=== PATIENT | male | born 2005 | race Caucasian/White ===

== ENCOUNTER 2023-09-24 16:53 | Observation (INO) ==
[2023-09-24] MEDS: dexAMETHasone**PF** 10 MG/ML VIAL IV ONE (17:10)
[2023-09-24] MEDS: diphenhydrAMINE 50 MG/ML VIAL IV STA ×2 (17:10→21:11)
[2023-09-24] MEDS: SODIUM CHLORIDE 0.9% 1,000 ML IV ONE ×2 (17:10→17:12)
[2023-09-24] MEDS: FAMOTIDINE 20MG IV PUSH 20 MG/5 ML SYR IV STA (17:10)
[2023-09-24] MEDS: EPINEPHrine INJ 1 MG/ML AMP ONE (17:11)
--- NOTE | 2023-09-24 21:31 | History & Physical Report ---
Date of Service September 24, 2023 Assessment & Plan (1) Allergic reaction: Plan: 18yo male presenting from home after eating a power bar containing tree nuts. Patient with swelling of tongue and lips, blurry vision. He self-administered his epi-pen prior to arrival. Upon arrival reported to be hypotensive which corrected with IVF. He was administered additional epinephrine x 1 a well as Dexamethasone, Benadryl and Pepcid. He had initial improvement in symptoms but unfortunately the rash returned. No airway involvement at present. 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 Patient ate a protein bar earlier today that contained tree nuts. Patient developed swelling of his tongue and lips as well as trouble swallowing, blurry vision and a diffuse rash. He self- administered his epi-pen and came to the ER. Per report, patient initially hypotensive. No stridor or respiratory distress. He was administered steroids, Benadryl, Pepcid and a second dose of epinephrine (given at 17:11). Patient's symptoms initially resolved, however they returned appx 4 hours later. Now with diffuse, pruritic erythematous rash. No further tongue swelling. No SOB. No additional complaints at this time. ER Course: NSS x 2L Benadryl 50mg IV + 25mg IV Pepcid 20mg IV Dexamethasone 10mg IV Epinephrine 0.3mg IM Allergies Allergy/AdvReac Type Severity Reaction Status Date / Time tree nut Allergy Severe Anaphylaxis--CARRIES Verified 09/24/23 17:49 AN EPIPEN Home Medications Medication Instructions Recorded Confirmed Type ashwagandha extract 120 mg capsule 0 mg PO DAILY 09/24/23 09/24/23 History cholecalciferol (vitamin D3) 50 50 mcg PO DAILY 09/24/23 09/24/23 History mcg (2,000 unit) capsule (Vitamin D3) cyanocobalamin (vitamin B-12) 1,000 mcg PO DAILY 09/24/23 09/24/23 History 1,000 mcg tablet (Vitamin B-12) dexmethylphenidate 10 mg tablet 10 mg PO DAILY 09/24/23 09/24/23 History (Focalin) epinephrine 0.3 mg/0.3 mL 0.3 mg IM DIRECTED PRN Allergic 09/24/23 09/24/23 History injection, auto-injector (EpiPen) Reaction omega 4-esm-zqs-fish oil 1,000 mg 1 cap PO DAILY 09/24/23 09/24/23 History (120 mg-180 mg) capsule (Fish Oil) Past Med/Surg History Medical History (Updated 09/24/23 @ 22:37 by Maggie Arnold DO) No significant past medical history Surgical History (Updated 09/24/23 @ 22:33 by Maggie Arnold DO) No significant past surgical history Family History (Updated 09/24/23 @ 22:34 by Maggie Arnold DO) Other No significant family history Social History (Updated 09/24/23 @ 22:34 by Maggie Arnold DO) Smoking Status: Never smoker Hx Alcohol Use: No Hx Substance Use: No Preferred Language: Panamanian 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 Beliefs That Will Affect Care: None Current Living Situation Comment: House with roommates Feels Safe at Home: Yes Review of Systems Review of Systems: All systems reviewed & are unremarkable except as noted in HPI & below Physical Exam Physical Exam: General: patient resting comfortably, NAD, non-toxic in appearance, AA&O x 4 Skin: diffuse erythematous, blanching rash present on arms, legs, abdomen HEENT: NC/AT, PERRL, EOMI, anicteric sclera, conjunctiva without injection, external ear normal to inspection and nontender, nares patent, moist mucus membranes, dentition intact, no oropharyngeal lesions, neck supple, trachea midline, no LAD, no thyromegaly, no JVD, no edema of the tongue, soft palate or uvula Heart: +S1/S2, regular, no m/r/g Lungs: equal air entry bilaterally, no rales/rhonchi/wheezes Abd: +BS, soft, NT/ND, no masses/organomegaly/ascites Ext: warm, 2+ pulses in UE/LE bilaterally, no clubbing/cyanosis or edema Neuro: nonfocal, patient AA&O x 4, speech intact, no facial droop, moving all extremities on command with equal strength 5/5 Results & Data Results & Data Vital Signs (Past 12 Hours) Vital Signs Temp Pulse Pulse Resp BP BP Pulse Ox 09/24/23 21:11 75 09/24/23 21:01 90 18 122/98 99 09/24/23 18:45 93 H 15 98 09/24/23 18:45 119/70 09/24/23 18:40 78 18 98 09/24/23 18:30 73 20 99 09/24/23 18:30 122/71 09/24/23 18:20 75 18 98 09/24/23 18:15 126/68 09/24/23 18:15 76 26 H 98 09/24/23 18:10 80 12 98 09/24/23 18:01 112/71 09/24/23 18:01 83 14 98 09/24/23 18:00 87 21 92 09/24/23 17:50 80 16 98 09/24/23 17:45 80 17 96 09/24/23 17:45 114/77 09/24/23 17:40 85 20 97 09/24/23 17:30 86 17 96 09/24/23 17:30 109/73 09/24/23 17:25 91 H 17 96 09/24/23 17:25 122/70 09/24/23 17:20 119/79 09/24/23 17:20 88 17 96 09/24/23 17:15 93 H 15 96 09/24/23 17:15 118/79 09/24/23 17:12 91 09/24/23 17:10 83 17 95 09/24/23 17:10 110/79 09/24/23 17:09 127 H 09/24/23 17:07 126 H 13 99 09/24/23 16:55 36.6 C 74 20 100 O2 Del Method 09/24/23 21:11 09/24/23 21:01 Room Air 09/24/23 18:45 Room Air 09/24/23 18:45 09/24/23 18:40 09/24/23 18:30 09/24/23 18:30 09/24/23 18:20 09/24/23 18:15 09/24/23 18:15 09/24/23 18:10 03/16/24 18:01 09/24/23 18:01 09/24/23 18:00 09/24/23 17:50 09/24/23 17:45 09/24/23 17:45 09/24/23 17:40 09/24/23 17:30 09/24/23 17:30 09/24/23 17:25 Room Air 09/24/23 17:25 09/24/23 17:20 09/24/23 17:20 Room Air 09/24/23 17:15 09/24/23 17:15 09/24/23 17:12 Room Air 09/24/23 17:10 09/24/23 17:10 09/24/23 17:09 09/24/23 17:07 09/24/23 16:55 Room Air PG Care Time/CCT Total # of Minutes Spent Total Time Spent with Patient: Total time spent is greater than 50% in coordination of care (as documented) at patient's floor/unit and/or counseling patient: Coding Level of Care Code 10765 INT INP/OBS CARE 2/55MIN Diagnoses Allergic reaction T78.40XA
[2023-09-24] MEDS ORDERED: ONDANSETRON INJ 2 MG/ML 2 ML VIAL IV PRN (22:58)
[2023-09-24] MEDS ORDERED: ACETAMINOPHEN 325 MG TAB PO PRN (22:58)
[2023-09-24 23:29] LABS: Hematocrit (blood only) 51.1 % (42.0-52.0); Hemoglobin 17.8 g/dl (14.0-18.0); Mean Corpuscular Hemoglobin 29.6 pg (25.0-34.0); Mean Corpuscular Hgb Conc 34.8 g/dL (32.0-36.0); Mean Corpuscular Volume 84.9 fL (80.0-100.0); Mean Platelet Volume 10.9 fL (9.4-12.4); Platelet Count 318 K/uL (130-400); RDW Coefficient of Variation 11.9 % (11.5-14.5); Red Blood Count 6.02 M/uL (4.70-6.10); White Blood Count 10.75 K/ul (4.8-10.8)
[2023-09-24 23:32] LABS: Alanine Aminotransferase 17 U/L (7-52); Albumin Level 4.5 gm/dl (3.4-5.0); Alkaline Phosphatase 98 U/L (34-104); Anion Gap 12 (3-11); Aspartate Aminotransferase 27 U/L (13-39); BUN Creatinine Ratio 16.4 (10-20); Bilirubin,Total 1.3 mg/dl (0.2-1.0); Blood Urea Nitrogen 18 mg/dl (6-23); Calcium 9.5 mg/dl (8.6-10.3); Carbon Dioxide 23 mmol/L (21-32); Chloride 107 mmol/L (98-107); Est GFR (African American) 111.4 ml/min; Est GFR (Non-African American) 96.1 ml/min; Glucose 114 mg/dl (70-99(Fasting)); Magnesium 1.9 mg/dl (1.7-2.4); Potassium 3.4 mmol/L (3.5-5.1); Sodium 142 mmol/L (136-145)
[2023-09-25 00:03] LABS: ALC (manual) 5.59 K/uL (1.2-3.4); ANC (manual) 4.09 K/uL (1.4-6.5); Acanthocytes 1+; Eosinophils # (manual) 0.11 K/uL (0-0.50); Eosinophils % (manual) 1 %; Lymphocytes # (manual) 3.23 K/uL (1.2-3.4); Lymphocytes % (manual) 30 %; Monocytes # (manual) 0.97 K/uL (0.11-0.59); Monocytes % (manual) 9 %; Neutrophils # (manual) 4.09 K/uL (1.40-6.50); Neutrophils % (manual) 38 %; Reactive Lymphocytes # (manual) 2.36 K/uL; Reactive Lymphocytes % (manual) 22 %
--- NOTE | 2023-09-25 01:42 | Emergency Department Note ---
ED Provider Note History of Present Illness Chief Complaint: Allergic Reaction Stated Complaint: ALLERGIC REACTION - TREE NUTS Time Seen by Provider: 09/24/23 16:58 Source: patient Mode of arrival: ambulatory Limitations: no limitations This patient is a 18-year-old male who presents to the emergency department for evaluation of an allergic reaction. Patient ate a protein bar immediately developed hives, swelling of tongue and lips, blurred vision. He has a history of a tree nut allergy. He used to prior to arrival, however symptoms persisted on arrival here. States that his throat feels itchy but denies any trouble breathing or swallowing. Denies any abdominal cramping, vomiting or diarrhea. Home Medications Medication Instructions Recorded Confirmed Type ashwagandha extract 120 mg capsule 0 mg PO DAILY 09/24/23 09/24/23 History cholecalciferol (vitamin D3) 50 50 mcg PO DAILY 09/24/23 09/24/23 History mcg (2,000 unit) capsule (Vitamin D3) cyanocobalamin (vitamin B-12) 1,000 mcg PO DAILY 09/24/23 09/24/23 History 1,000 mcg tablet (Vitamin B-12) dexmethylphenidate 10 mg tablet 10 mg PO DAILY 09/24/23 09/24/23 History (Focalin) epinephrine 0.3 mg/0.3 mL 0.3 mg IM DIRECTED PRN Allergic 09/24/23 09/24/23 History injection, auto-injector (EpiPen) Reaction omega 5-lna-ary-fish oil 1,000 mg 1 cap PO DAILY 09/24/23 09/24/23 History (120 mg-180 mg) capsule (Fish Oil) Allergies Allergy/AdvReac Type Severity Reaction Status Date / Time tree nut Allergy Severe Anaphylaxis--CARRIES Verified 09/24/23 17:49 AN EPIPEN Past Med/Surg History Medical History No significant past medical history Surgical History No significant past surgical history Family History Other No significant family history Social History Smoking Status: Never smoker Hx Alcohol Use: No Hx Substance Use: No Preferred Language: Kazakh 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 Beliefs That Will Affect Care: None Current Living Situation Comment: House with roommates Feels Safe at Home: Yes Safety Concerns: Feels Safe At This Time Physical Exam Vital Signs Vital Signs - 24 hr 09/24/23 16:55 09/24/23 16:59 09/24/23 17:00 Temperature 36.6 C Temperature Source Temporal Artery Scan Pulse Rate 74 Pulse Rate [Apical] Pulse Rate from SpO2 Sensor Pulse Rhythm [Apical] Respiratory Rate 20 Respiratory Effort / Characteristics Non-Labored Respiratory Depth Normal Blood Pressure Blood Pressure [Right Arm] 82/57 L 76/59 L Blood Pressure Mean Blood Pressure Mean [Right Arm] 65 64 Pulse Oximetry 100 Oxygen Delivery Method Room Air Sepsis Recent Fever Within 48 Hours No Sepsis New/Unexplained Change in Mental Status No Sepsis Action Taken by Nursing No Action Required 09/24/23 17:01 09/24/23 17:05 09/24/23 17:07 Temperature Temperature Source Pulse Rate 126 H Pulse Rate [Apical] 123 H Pulse Rate from SpO2 Sensor Pulse Rhythm [Apical] Regular Respiratory Rate 13 Respiratory Effort / Characteristics Respiratory Depth Blood Pressure Blood Pressure [Right Arm] 69/51 L 86/47 L Blood Pressure Mean Blood Pressure Mean [Right Arm] 57 60 Pulse Oximetry 97 99 Oxygen Delivery Method Room Air Sepsis Recent Fever Within 48 Hours Sepsis New/Unexplained Change in Mental Status Sepsis Action Taken by Nursing 09/24/23 17:09 09/24/23 17:10 09/24/23 17:10 Temperature Temperature Source Pulse Rate 127 H 83 Pulse Rate [Apical] Pulse Rate from SpO2 Sensor Pulse Rhythm [Apical] Respiratory Rate 17 Respiratory Effort / Characteristics Respiratory Depth Blood Pressure 110/79 Blood Pressure [Right Arm] Blood Pressure Mean 84 Blood Pressure Mean [Right Arm] Pulse Oximetry 95 Oxygen Delivery Method Sepsis Recent Fever Within 48 Hours Sepsis New/Unexplained Change in Mental Status Sepsis Action Taken by Nursing 09/24/23 17:12 09/24/23 17:15 09/24/23 17:15 Temperature Temperature Source Pulse Rate 93 H Pulse Rate [Apical] Pulse Rate from SpO2 Sensor Pulse Rhythm [Apical] Respiratory Rate 15 Respiratory Effort / Characteristics Respiratory Depth Blood Pressure 118/79 Blood Pressure [Right Arm] Blood Pressure Mean 98 Blood Pressure Mean [Right Arm] Pulse Oximetry 91 96 Oxygen Delivery Method Room Air Sepsis Recent Fever Within 48 Hours Sepsis New/Unexplained Change in Mental Status Sepsis Action Taken by Nursing 09/24/23 17:20 09/24/23 17:20 09/24/23 17:25 Temperature Temperature Source Pulse Rate 88 Pulse Rate [Apical] Pulse Rate from SpO2 Sensor 86 Pulse Rhythm [Apical] Respiratory Rate 17 Respiratory Effort / Characteristics Respiratory Depth Blood Pressure 119/79 122/70 Blood Pressure [Right Arm] Blood Pressure Mean 93 85 Blood Pressure Mean [Right Arm] Pulse Oximetry 96 Oxygen Delivery Method Room Air Sepsis Recent Fever Within 48 Hours Sepsis New/Unexplained Change in Mental Status Sepsis Action Taken by Nursing 09/24/23 17:25 09/24/23 17:30 09/24/23 17:30 Temperature Temperature Source Pulse Rate 91 H 86 Pulse Rate [Apical] Pulse Rate from SpO2 Sensor 89 80 Pulse Rhythm [Apical] Respiratory Rate 17 17 Respiratory Effort / Characteristics Respiratory Depth Blood Pressure 109/73 Blood Pressure [Right Arm] Blood Pressure Mean 94 Blood Pressure Mean [Right Arm] Pulse Oximetry 96 96 Oxygen Delivery Method Room Air Sepsis Recent Fever Within 48 Hours Sepsis New/Unexplained Change in Mental Status Sepsis Action Taken by Nursing 09/24/23 17:40 09/24/23 17:45 09/24/23 17:45 Temperature Temperature Source Pulse Rate 85 80 Pulse Rate [Apical] Pulse Rate from SpO2 Sensor 83 83 Pulse Rhythm [Apical] Respiratory Rate 20 17 Respiratory Effort / Characteristics Respiratory Depth Blood Pressure 114/77 Blood Pressure [Right Arm] Blood Pressure Mean 94 Blood Pressure Mean [Right Arm] Pulse Oximetry 97 96 Oxygen Delivery Method Sepsis Recent Fever Within 48 Hours Sepsis New/Unexplained Change in Mental Status Sepsis Action Taken by Nursing 09/24/23 17:50 09/24/23 18:00 09/24/23 18:01 Temperature Temperature Source Pulse Rate 80 87 83 Pulse Rate [Apical] Pulse Rate from SpO2 Sensor 81 90 81 Pulse Rhythm [Apical] Respiratory Rate 16 21 14 Respiratory Effort / Characteristics Respiratory Depth Blood Pressure Blood Pressure [Right Arm] Blood Pressure Mean Blood Pressure Mean [Right Arm] Pulse Oximetry 98 92 98 Oxygen Delivery Method Sepsis Recent Fever Within 48 Hours Sepsis New/Unexplained Change in Mental Status Sepsis Action Taken by Nursing 09/24/23 18:01 09/24/23 18:10 09/24/23 18:15 Temperature Temperature Source Pulse Rate 80 76 Pulse Rate [Apical] Pulse Rate from SpO2 Sensor 81 78 Pulse Rhythm [Apical] Respiratory Rate 12 26 H Respiratory Effort / Characteristics Respiratory Depth Blood Pressure 112/71 Blood Pressure [Right Arm] Blood Pressure Mean 78 Blood Pressure Mean [Right Arm] Pulse Oximetry 98 98 Oxygen Delivery Method Sepsis Recent Fever Within 48 Hours Sepsis New/Unexplained Change in Mental Status Sepsis Action Taken by Nursing 09/24/23 18:15 09/24/23 18:20 09/24/23 18:30 Temperature Temperature Source Pulse Rate 75 Pulse Rate [Apical] Pulse Rate from SpO2 Sensor 76 Pulse Rhythm [Apical] Respiratory Rate 18 Respiratory Effort / Characteristics Respiratory Depth Blood Pressure 126/68 122/71 Blood Pressure [Right Arm] Blood Pressure Mean 82 95 Blood Pressure Mean [Right Arm] Pulse Oximetry 98 Oxygen Delivery Method Sepsis Recent Fever Within 48 Hours Sepsis New/Unexplained Change in Mental Status Sepsis Action Taken by Nursing 09/24/23 18:30 09/24/23 18:40 09/24/23 18:45 Temperature Temperature Source Pulse Rate 73 78 Pulse Rate [Apical] Pulse Rate from SpO2 Sensor 75 77 Pulse Rhythm [Apical] Respiratory Rate 20 18 Respiratory Effort / Characteristics Respiratory Depth Blood Pressure 119/70 Blood Pressure [Right Arm] Blood Pressure Mean 89 Blood Pressure Mean [Right Arm] Pulse Oximetry 99 98 Oxygen Delivery Method Sepsis Recent Fever Within 48 Hours Sepsis New/Unexplained Change in Mental Status Sepsis Action Taken by Nursing 09/24/23 18:45 09/24/23 21:01 09/24/23 21:11 Temperature Temperature Source Pulse Rate 93 H 75 Pulse Rate [Apical] 90 Pulse Rate from SpO2 Sensor 87 Pulse Rhythm [Apical] Regular Respiratory Rate 15 18 Respiratory Effort / Characteristics Non-Labored Respiratory Depth Normal Blood Pressure Blood Pressure [Right Arm] 122/98 Blood Pressure Mean Blood Pressure Mean [Right Arm] 106 Pulse Oximetry 98 99 Oxygen Delivery Method Room Air Room Air Sepsis Recent Fever Within 48 Hours Sepsis New/Unexplained Change in Mental Status Sepsis Action Taken by Nursing VITALS: Vitals are noted on the nurse's note and reviewed by myself. GENERAL: This is a 18-year-old male, moderate distress. SKIN: Diffuse urticaria noted. EARS: External auditory canals clear, tympanic membranes pearly mejia without erythema or effusion bilaterally. EYES: Pupils equal round and reactive to light and accommodation. NOSE: Patent, turbinates without inflammation or discharge. MOUTH: Mucous membranes moist. Tonsils are not enlarged. Pharynx without erythema or exudate. NECK: Supple without nuchal rigidity. No lymphadenopathy. HEART: tachycardic, regular rhythm without murmurs gallops or rubs. LUNGS: Clear to auscultation bilaterally without wheezes, rales or rhonchi. ABDOMEN: Positive bowel sounds x 4. Soft, nontender to palpation NEURO: Patient was alert and oriented to person place and time. Course Administered Medications Discontinued Medications Dexamethasone Sodium Phosphate (DexamethasonePf 10 Mg/Ml Vial) 10 mg IV NOW ONE Stop: 09/24/23 17:04 Last Admin: 09/24/23 17:10 Dose: 10 mg Documented By: ML Diphenhydramine HCl (Diphenhydramine 50 Mg/Ml Vial) 50 mg IV NOW STA Stop: 09/24/23 17:04 Last Admin: 09/24/23 17:10 Dose: 50 mg Documented By: RABIA Diphenhydramine HCl (Diphenhydramine 50 Mg/Ml Vial) 25 mg IV NOW STA Stop: 09/24/23 21:08 Last Admin: 09/24/23 21:11 Dose: 25 mg Documented By: RABIA Epinephrine HCl (Epinephrine Inj 1 Mg/Ml Amp) Confirm Administered Dose 1 mg .ROUTE .STK-MED ONE Stop: 09/24/23 17:02 Last Admin: 09/24/23 17:11 Dose: 0.3 mg Documented By: ML Sodium Chloride (Nss) 1,000 mls @ 999 mls/hr IV .Q1H1M ONE Stop: 09/24/23 18:03 Last Infusion: 09/24/23 18:11 Dose: Infused Documented By: Admin: 09/24/23 17:10 Dose: 999 mls/hr Documented By: ML Famotidine (Pepcid 20mg Iv Push) 20 mg in 5 mls @ 2.5 mls/min IV NOW STA Stop: 09/24/23 17:04 Last Admin: 09/24/23 17:10 Dose: 2.5 mls/min Documented By: ML Sodium Chloride (Nss) 1,000 mls @ 999 mls/hr IV .Q1H1M ONE Stop: 09/24/23 18:11 Last Infusion: 09/24/23 18:11 Dose: Infused Documented By: Admin: 09/24/23 17:12 Dose: 999 mls/hr Documented By: RABIA Medical Decision Making Differential Diagnosis Allergic reaction, anaphylaxis, urticaria, Cole-Sylvester syndrome, toxic epidermal necrolysis, erythema multiforme, contact dermatitis, cellulitis, as well as other pathologies. Laboratory Data 09/24/23 17:00 09/24/23 17:00 Lab Results 09/24/23 Range/Units 17:00 WBC 10.75 (4.8-10.8) K/ul RBC 6.02 (4.70-6.10) M/uL Hgb 17.8 (14.0-18.0) g/dl Hct 51.1 (42.0-52.0) % MCV 84.9 (80.0-100.0) fL MCH 29.6 (25.0-34.0) pg MCHC 34.8 (32.0-36.0) g/dL RDW Std Deviation 36.0 L (36.4-46.3) fL RDW Coeff of Sami 11.9 (11.5-14.5) % Plt Count 318 (130-400) K/uL MPV 10.9 (9.4-12.4) fL Neutrophils % (Manual) 38 % Lymphocytes % (Manual) 30 % Reactive Lymphs % (Man) 22 % Monocytes % (Manual) 9 % Eosinophils % (Manual) 1 % Neutrophils # (Manual) 4.09 (1.40-6.50) K/uL Total Absolute Neuts 4.09 (1.4-6.5) K/uL Lymphocytes # (Manual) 3.23 (1.2-3.4) K/uL Reactive Lymphs # 2.36 K/uL Total Abs Lymphocytes 5.59 H (1.2-3.4) K/uL Monocytes # (Manual) 0.97 H (0.11-0.59) K/uL Eosinophils # (Manual) 0.11 (0-0.50) K/uL Acanthocytes (Spur) 1+ Sodium 142 (136-145) mmol/L Potassium 3.4 L (3.5-5.1) mmol/L Chloride 107 (98-107) mmol/L Carbon Dioxide 23 (21-32) mmol/L Anion Gap 12 H (3-11) BUN 18 (6-23) mg/dl Creatinine 1.10 (0.6-1.4) mg/dl Est Cr Clr Drug Dosing Not Reportable Est GFR ( Amer) 111.4 ml/min Est GFR (Non-Af Amer) 96.1 ml/min BUN/Creatinine Ratio 16.4 (10-20) Glucose 114 H (70-99(Fasting)) mg/dl Calcium 9.5 (8.6-10.3) mg/dl Magnesium 1.9 (1.7-2.4) mg/dl Total Bilirubin 1.3 H (0.2-1.0) mg/dl Direct Bilirubin 0.0 (0-0.2) mg/dl AST 27 (13-39) U/L ALT 17 (7-52) U/L Alkaline Phosphatase 98 (34-104) U/L Total Protein 7.0 (6.0-8.3) gm/dl Albumin 4.5 (3.4-5.0) gm/dl MDM Narrative This patient is a 18-year-old male who presents to the emergency department for evaluation of an anaphylactic reaction. Patient initially hypotensive although maintaining airway on arrival. He was immediately treated with a second dose of IM epinephrine and additionally given 2 L of normal saline, 50 mg of Benadryl, 10 mg of dexamethasone and 20 mg of Pepcid IV. Patient had significant improvement after this treatment. He was monitored for 4 hours to assess for rebound reaction and unfortunately on examination patient had recurrent urticaria. He was given an additional 25 mg of Benadryl IV and admitted to the hospitalist service for further care. Impression Anaphylaxis Critical Care Time I have personally spent greater than 35 minutes of critical care time in the direct management of this patient. This includes bedside care, interpretation of diagnostic studies, and testing, discussion with consultants, patient, and family members, and other required patient management activities. This 35 minutes is in excess of all separately billable procedures. Discharge Plan Visit Data Chief Complaint: Allergic Reaction Stated Complaint: ALLERGIC REACTION - TREE NUTS ED Provider: Toshia Viera ED Midlevel Provider: Faina Christie Discharge Problem: Anaphylaxis Discharge Instructions Interventions: ED Discharge Assessment Last Done: 09/24/23 22:58 Discharge Problem: Anaphylaxis Qualifiers: Encounter type: initial encounter Qualified Code(s): T78.2XXA - Anaphylactic shock, unspecified, initial encounter
[2023-09-25] MEDS: methylPREDNISolone 40 MG in SYRINGE 0 ML IV SCH (09:48)
[2023-09-25] MEDS: POTASSIUM CHLORIDE CRTAB 20 MEQ TABCR PO STA (09:48)
[2023-09-25] MEDS: FAMOTIDINE 20MG IV PUSH 20 MG/5 ML SYR IV SCH (09:57)
[2023-09-25] MEDS: diphenhydrAMINE 50 MG/ML VIAL IV SCH (09:57)
--- NOTE | 2023-09-25 11:31 | Discharge Summary ---
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 Patient ate a protein bar earlier today that contained tree nuts. Patient developed swelling of his tongue and lips as well as trouble swallowing, blurry vision and a diffuse rash. He self- administered his epi-pen and came to the ER. Per report, patient initially hypotensive. No stridor or respiratory distress. He was administered steroids, Benadryl, Pepcid and a second dose of epinephrine (given at 17:11). Patient's symptoms initially resolved, however they returned appx 4 hours later. Now with diffuse, pruritic erythematous rash. No further tongue swelling. No SOB. No additional complaints at this time. ER Course: NSS x 2L Benadryl 50mg IV + 25mg IV Pepcid 20mg IV Dexamethasone 10mg IV Epinephrine 0.3mg IM Admission Exam Per Admitting Provider General: patient resting comfortably, NAD, non-toxic in appearance, AA&O x 4 Skin: diffuse erythematous, blanching rash present on arms, legs, abdomen HEENT: NC/AT, PERRL, EOMI, anicteric sclera, conjunctiva without injection, external ear normal to inspection and nontender, nares patent, moist mucus membranes, dentition intact, no oropharyngeal lesions, neck supple, trachea midline, no LAD, no thyromegaly, no JVD, no edema of the tongue, soft palate or uvula Heart: +S1/S2, regular, no m/r/g Lungs: equal air entry bilaterally, no rales/rhonchi/wheezes Abd: +BS, soft, NT/ND, no masses/organomegaly/ascites Ext: warm, 2+ pulses in UE/LE bilaterally, no clubbing/cyanosis or edema Neuro: nonfocal, patient AA&O x 4, speech intact, no facial droop, moving all extremities on command with equal strength 5/5 Principal Diagnosis Acute allergic reaction Discharge Exam General: Awake, conversant Heart: S1, S2/regular rate and rhythm, no murmur rubs or gallops Lungs: Clear to auscultation bilaterally. Normal effort Abdomen: Soft/nontender/nondistended. No hepatosplenomegaly Extremities: No clubbing/cyanosis. No edema Behavior: Appropriate, cooperative Discharge Data Allergies Allergy/AdvReac Type Severity Reaction Status Date / Time tree nut Allergy Severe Anaphylaxis--CARRIES Verified 09/24/23 17:49 AN EPIPEN Hospital Course (1) Allergic reaction: 18yo male presenting from home after eating a power bar containing tree nuts. Patient with swelling of tongue and lips, blurry vision. He self-administered his epi-pen prior to arrival. Upon arrival reported to be hypotensive which corrected with IVF. He was administered additional epinephrine x 1 a well as Dexamethasone, Benadryl and Pepcid. He had initial improvement in symptoms but unfortunately the rash returned. No airway involvement at present. Patient was monitored overnight No rash today Patient is completely asymptomatic He will be discharged today with a Medrol pack Total Time Total Time Spent Total Time Spent (In Minutes): 35 Discharge Plan Discharge Items Patient Disposition: Home - Self-Care Reason For Visit: ALLERGIC REACTION Discharge Diagnosis: Allergic reaction Activity: Resume your previous activity Non-emergency contact: Primary Care Provider Call non-emergency contact if: you have any medication questions and your symptoms worsen Follow-up/Referrals: [facility] [Primary Care Provider] - Diet: Regular Addtl Attending Provider Instructions: - Advised to follow-up with PCP in 1 week - Advised to follow-up with product designer in 1 month Pending Studies at Discharge: No Stand-Alone Forms: My [facility] Medications and DC Order Prescriptions: New methylprednisolone [Methylpred DP] 4 mg tablets,dose pack 4 mg PO BID Qty: 21 0RF Rx Instructions: Please follow instruction manual Continued cyanocobalamin (vitamin B-12) [Vitamin B-12] 1,000 mcg Tablet 1,000 mcg PO DAILY dexmethylphenidate [Focalin] 10 mg Tablet 10 mg PO DAILY epinephrine [EpiPen] 0.3 mg/0.3 mL Auto-Injector 0.3 mg IM DIRECTED PRN (Reason: Allergic Reaction) cholecalciferol (vitamin D3) [Vitamin D3] 50 mcg (2,000 unit) Capsule 50 mcg PO DAILY omega 9-lzz-ive-fish oil [Fish Oil] 1,000 mg (120 mg-180 mg) Capsule 1 cap PO DAILY ashwagandha extract 120 mg Capsule 0 mg PO DAILY Rx Instructions: PT UNSURE OF STRENGTH Discharge Orders: Discharge Order (Routine); Ordered 09/25/23 Ordered By: Rose Huggins Admission Data Admit Date/Time: 09/24/23 21:31 Attending Provider: Rose Huggins Admit Provider: Maggie Arnold Primary Care Provider: [facility] Other Interventions: Discharge Summary Assessment (RN) Last Done: 09/25/23 12:03 Coding Level of Care Code 29430 INP/OBS DISCH >30 MIN Diagnoses Allergic reaction [id number]
== END 2023-09-25 14:00 | disposition home or self-care (01) | DRG 916 ==
LOC: ED 16:53 → EDINP 21:31 → INTOOBSV 21:31 → SUATTDRO 21:31 → 2N 09-25 02:22